=== PATIENT | male | born 1960 | race Caucasian/White ===

== ENCOUNTER → 2018-04-18 | Outpatient (CLI) | payer BC ==
--- NOTE | 2018-04-18 18:11 | XR ---
EXAMINATION TYPE: XR lumbosacral spine min 4V DATE OF EXAM: 04/18/2018 COMPARISON: NONE HISTORY: Back pain TECHNIQUE: 5 views FINDINGS: Lumbar vertebra have normal alignment. Posterior elements are intact. Sacroiliac joints [place] ear normal. Disc spaces are fairly normal. IMPRESSION: Negative lumbar spine exam.
--- NOTE | 2018-04-18 18:13 | XR ---
EXAMINATION TYPE: XR Hip Complete RT DATE OF EXAM: 04/18/2018 COMPARISON: NONE HISTORY: Hip pain TECHNIQUE: 2 views FINDINGS: I see no fracture nor dislocation. Hip joint space is fairly well-maintained. Sacroiliac albertina int appears normal. There is no sign of hip dysplasia. IMPRESSION: Negative right hip exam
== END | disposition home or self-care (01) ==
LOC: RADXRMAIN 16:38
PROVIDERS: ATTEND Internal Medicine
DX: M25.551 Pain in right hip (principal); M54.5 Low back pain
CPT/HCPCS: 72110; 73502

== ENCOUNTER 2020-02-21 06:21 | Emergency (ER) | payer BC, OTHER ==
[2020-02-21 06:30] VITALS: BP 151/89; PULSE 69; RESP 18; TEMP 97.5
--- NOTE | 2020-02-21 06:44 | ED ---
Upper Extremity HPI - General Chief Complaint: Extremity Injury, Upper Stated Complaint: [facility] hand injury Time Seen by Provider: 02/21/20 06:32 Source: patient, RN notes reviewed, old records reviewed Mode of arrival: EMS Limitations: no limitations - History of Present Illness Initial Comments: Patient 39-year-old male who presents emergency department today with a right hand third and fourth digit pain after he was using a drill and felt a snap between his proximal third digit and fourth digit. He denies any lacerations. Reports he does have range of motion of the fingers. He reports he's noticed some swelling. Patient states that he is right-handed. He denies any other complaints. - Related Data Home Medications Medication Instructions Recorded Confirmed Ibuprofen [Motrin] 200 - 400 mg PO Q6HR PRN 06/01/16 06/01/16 Multivitamins, Thera [Multivitamin] 1 tab PO DAILY 06/01/16 06/01/16 Super T Testosterone Supplement 3 cap PO DAILY 06/01/16 06/01/16 Previous Rx's Medication Instructions Recorded Ibuprofen [Motrin] 600 mg PO Q8HR PRN #20 tab 02/21/20 Allergies Allergy/AdvReac Type Severity Reaction Status Date / Time No Known Allergies Allergy Verified 02/21/20 06:31 Review of Systems ROS Statement: Those systems with pertinent positive or pertinent negative responses have been documented in the HPI. ROS Other: All systems not noted in ROS Statement are negative. Past Medical History Past Medical History: Asthma, Hypertension, Sleep Apnea/CPAP/BIPAP Additional Past Medical History / Comment(s): NO CPAP, hx migraines, arthritis, tinnitis History of Any Multi-Drug Resistant Organisms: None Reported Past Surgical History: Hernia Repair, Tonsillectomy Additional Past Surgical History / Comment(s): BENIGN BX NECK Past Anesthesia/Blood Transfusion Reactions: No Reported Reaction Past Psychological History: No Psychological Hx Reported Smoking Status: Current every day smoker Past Alcohol Use History: None Reported Past Drug Use History: Marijuana - Past Family History Mother Family Medical History: Deep Vein Thrombosis (DVT) General Exam Limitations: no limitations General appearance: alert, in no apparent distress Head exam: Present: atraumatic, normocephalic, normal inspection Eye exam: Present: normal appearance, PERRL, EOMI. Absent: scleral icterus, conjunctival injection, periorbital swelling ENT exam: Present: normal exam, mucous membranes moist Neck exam: Present: normal inspection. Absent: tenderness, meningismus, lymphadenopathy Respiratory exam: Present: normal lung sounds bilaterally. Absent: respiratory distress, wheezes, rales, rhonchi, stridor Cardiovascular Exam: Present: regular rate, normal rhythm, normal heart sounds. Absent: systolic murmur, diastolic murmur, rubs, gallop, clicks GI/Abdominal exam: Present: soft, normal bowel sounds. Absent: distended, tenderness, guarding, rebound, rigid Extremities exam: Present: normal inspection, full ROM, normal capillary refill. Absent: tenderness, pedal edema, joint swelling, calf tenderness Right Forearm Wrist exam: Present: normal inspection, full ROM Hand Wrist exam: Present: normal inspection, full ROM, tenderness (over distal 3rd and 4th metacarpal and PIP. Minimal swelling. subungal hematoma that is old under 5th digit. ) Neuro motor exam: Present: wrist extension intact, thumb opposition intact, thumb IP flexion intact, thumb adduction intact, fingers 2-5 abduction intact Neurosensory exam: Present: radial nerve intact, ulnar nerve intact, median ner ve intact Vascular: Present: normal capillary refill Back exam: Present: normal inspection Neurological exam: Present: alert, oriented X3, CN II-XII intact Psychiatric exam: Present: normal affect, normal mood Skin exam: Present: warm, dry, intact, normal color. Absent: rash Course Vital Signs 02/21/20 06:24 Temperature 97.5 F L Pulse Rate 69 Respiratory 18 Rate Blood Pressure 151/89 O2 Sat by Pulse 96 Oximetry Procedures - Orthopedic Splinting/Casting Injury #1 Side: right Upper Extremity Injury Location: hand, finger Upper Extremity Immobilizer: volar splint Medical Decision Making - Medical Decision Making Patient is a 59-year-old male presents range from stay for evaluation for right hand pain. Patient reports that he was using a drill and felt a snap in his hand. He reports pain with range of motion but is able to flex and extend his fingers normally. Has mainly tenderness over the third and fourth metacarpal. X-ray shows evidence of nondisplaced hairline fracture of the metacarpal. Patient was placed in a volar splint. I discussed Patient to follow-up with orthopedic. [facility] inflammatory pain medicine as prescribed. - Radiology Data Radiology results: report reviewed Nondisplaced hairline fracture of the distal dye metaphyseal region of the third metacarpal. Disposition Clinical Impression: Hand fracture Disposition: HOME SELF-CARE Condition: Good Instructions (If sedation given, give patient instructions): Hand Fracture (ED) Additional Instructions: Patient advised to remain in the splint. Follow-up with orthopedic. Return to the ED if any alarming signs or symptoms occur. Prescriptions: Ibuprofen [Motrin] 600 mg PO Q8HR PRN #20 tab PRN Reason: Pain Is patient prescribed a controlled substance at d/c from ED?: No Referrals: Sander Trimble MD [Primary Care Provider] - 1-2 days Bryce Ibarra DO [Doctor of Osteopathic Medicine] - 1-2 days Time of Disposition: 07:39
--- NOTE | 2020-02-21 07:27 | XR ---
EXAMINATION TYPE: XR hand complete RT DATE OF EXAM: 02/21/2020 CLINICAL HISTORY: pain TECHNIQUE: Frontal, lateral and oblique images of the right hand are obtained. COMPARISON: None. FINDINGS: Nondisplaced hairline fracture distal diametaphyseal region third metacarpal. The joint spa alexis appear within normal limits. The overlying soft tissue appears unremarkable. Bony sclerosis midd le phalanx right third digit compatible with bone island. IMPRESSION: Nondisplaced hairline fracture distal diametaphyseal region third metacarpal. ICD 10 closed FRACTURE, INITIAL EVALUATION
[2020-02-21] MEDS ORDERED: ACET/COD 300 MG/30 MG STARTER PACK 6 TAB BTL PO STA (07:39)
== END 2020-02-21 08:06 | disposition home or self-care (01) ==
LOC: EC 06:21
DX: S62.302A Unspecified fracture of third metacarpal bone, right hand, initial encounter for closed fracture (principal); I10 Essential (primary) hypertension; G47.30 Sleep apnea, unspecified; F17.200 Nicotine dependence, unspecified, uncomplicated; Z99.89 Dependence on other enabling machines and devices; X50.9XXA Other and unspecified overexertion or strenuous movements or postures, initial encounter; Y92.69 Other specified industrial and construction area as the place of occurrence of the external cause; Y99.0 Civilian activity done for income or pay
CPT/HCPCS: 29125; 99284

== ENCOUNTER → 2020-07-24 | Outpatient (CLI) | payer BC | END | disposition home or self-care (01) | LOC: LABWHC1 09:15 | PROVIDERS: ATTEND Emergency Medicine | DX: Z20.828 Contact with and (suspected) exposure to other viral communicable diseases (principal) | CPT/HCPCS: U0003; C9803 ==

== ENCOUNTER 2020-10-11 16:17 | Emergency (ER) | payer BC ==
[2020-10-11 16:29] VITALS: BP 158/94; PULSE 76; RESP 20; TEMP 98.3
[2020-10-11] MEDS ORDERED: KETOROLAC 15 MG/ML 1 ML VIAL IM STA (17:00)
--- NOTE | 2020-10-11 17:01 | ED ---
General Adult HPI - General Chief complaint: Extremity Problem,Nontraumatic Stated complaint: R Shoulder Pain Time Seen by Provider: 10/11/20 16:40 Source: patient Mode of arrival: ambulatory Limitations: no limitations - History of Present Illness Initial comments: Dictation was produced using [employer] dictation software. please excuse any grammatical, word or spelling errors. This patient was cared for during a federal and state declared state of emergency secondary to Covid 19 Chief Complaint: 59-year-old male presents with right shoulder pain History of Present Illness: 59-year-old male he is past medical history of chronic right shoulder pain. Patient states that 6 years ago he had an MRI that showed rotator cuff tear. Today began experiencing severe right shoulder pain. Denies any trauma to the shoulder. Patient states painful and feels swollen. Denies a fever, chills or night sweats. Pain reports his pain is severe with no radiation. 6 or 7 years ago he was recommended to have surgery for his shoulder however never got it due to logistical issues. The ROS documented in this emergency department record has been reviewed and confirmed by me. Those systems with pertinent positive or negative responses have been documented in the HPI. All other systems are other negative and/or noncontributory. PHYSICAL EXAM: General Impression: Alert and oriented x3, not in acute distress HEENT: Normocephalic atraumatic, extra-ocular movements intact, pupils equal and reactive to light bilaterally, mucous membranes moist. Cardiovascular: Heart regular rate and rhythm Chest: Able to complete full sentences, no retractions, no tachypnea Abdomen: abdomen soft, non-tender, non-distended, no organomegaly Musculoskeletal: Pulses present and equal in all extremities, no peripheral edema Motor: no focal deficits noted Right shoulder: Decreased range of motion with passive and active range of motion. Passive range of motion limited to approximately 45 of abduction. Movements are full to patient. Neurological: CN II-XII grossly intact, no focal motor or sensory deficits noted Skin: Intact with no visualized rashes Psych: Normal affect and mood ED course: 59-year-old male presents with atraumatic right shoulder pain. Vital signs upon arrival are within acceptable limits Shoulder x-ray shows mild degenerative narrowing of the shoulder joints patient with calcific tendinitis. Patient placed in arm sling for comfort. Patient given pain medications at his pharmacy. He is given referral to orthopedic surgery for outpatient management of symptoms. - Related Data Home Medications Medication Instructions Recorded Confirmed Ibuprofen [Motrin] 200 - 400 mg PO Q6HR PRN 06/01/16 06/01/16 Multivitamins, Thera [Multivitamin] 1 tab PO DAILY 06/01/16 06/01/16 Super T Testosterone Supplement 3 cap PO DAILY 06/01/16 06/01/16 Previous Rx's Medication Instructions Recorded Acetaminophen with Codeine 1 tab PO Q6H PRN 3 Days #12 tab 02/21/20 [Tylenol w/codeine #3] Ibuprofen [Motrin] 600 mg PO Q8HR PRN #20 tab 02/21/20 HYDROcodone/APAP 5-325MG [[place] 1 tab PO Q6HR PRN 3 Days #12 tab 10/11/20 5-325] Allergies Allergy/AdvReac Type Severity Reaction Status Date / Time No Known Allergies Allergy Verified 10/11/20 16:29 Review of Systems ROS Statement: Those systems with pertinent positive or pertinent negative responses have been documented in the HPI. ROS Other: All systems not noted in ROS Statement are negative. Past Medical History Past Medical History: Asthma, Hypertension, Sleep Apnea/CPAP/BIPAP Additional Past Medical History / Comment(s): NO CPAP, hx migraines, arthritis, tinnitis History of Any Multi-Drug Resistant Organisms: None Reported Past Surgical History: Hernia Repair, Tonsillectomy Additional Past Surgical History / Comment(s): BENIGN BX NECK Past Anesthesia/Blood Transfusion Reactions: No Reported Reaction Past Psychological History: No Psychological Hx Reported Smoking Status: Current every day smoker Past Alcohol Use History: None Reported Past Drug Use History: Marijuana - Past Family History Mother Family Medical History: Deep Vein Thrombosis (DVT) General Exam Limitations: no limitations Course Vital Signs 10/11/20 16:27 Temperature 98.3 F Pulse Rate 76 Respiratory 20 Rate Blood Pressure 158/94 O2 Sat by Pulse 96 Oximetry Disposition Clinical Impression: Arthritis of shoulder Disposition: HOME SELF-CARE Condition: Good Instructions (If sedation given, give patient instructions): Calcific Tendinitis (ED), Shoulder Pain (ED) Prescriptions: HYDROcodone/APAP 5-325MG [[place] 5-325] 1 tab PO Q6HR PRN 3 Days #12 tab PRN Reason: Severe Pain Is patient prescribed a controlled substance at d/c from ED?: Yes If prescribed controlled substance>3 days was MAPS reviewed?: Prescribed <3 Days Referrals: Patrick Ibarra DO [Doctor of Osteopathic Medicine] - 1-2 days Time of Disposition: 17:16
--- NOTE | 2020-10-11 17:09 | XR ---
EXAMINATION TYPE: XR shoulder complete RT DATE OF EXAM: 10/11/2020 COMPARISON: NONE HISTORY: Shoulder pain TECHNIQUE: 3 views FINDINGS: There is 1 cm calcification at the greater tuberosity of the humerus. I see no fracture nor dislocation. There is slight narrowing of the glenohumeral joint space. AC joint is intact. IMPRESSION: Mild degenerative narrowing of the shoulder joint space. Calcific tendinitis. No fracture seen.
== END 2020-10-11 17:07 | disposition home or self-care (01) ==
LOC: EC 16:17
DX: M19.011 Primary osteoarthritis, right shoulder (principal); I10 Essential (primary) hypertension; J45.909 Unspecified asthma, uncomplicated; G47.30 Sleep apnea, unspecified; M77.8 Other enthesopathies, not elsewhere classified; F17.200 Nicotine dependence, unspecified, uncomplicated; Z99.89 Dependence on other enabling machines and devices
CPT/HCPCS: 73030; 99283; 96372; J1885

== ENCOUNTER 2024-01-22 12:04 | Emergency (ER) | payer BC ==
--- NOTE | 2024-01-22 12:12 | ED ---
General Adult HPI - General Stated complaint: Respiratory issues Time Seen by Provider: 01/22/24 12:04 Source: patient, RN notes reviewed, old records reviewed - History of Present Illness Initial comments: This is a 63-year-old male who is brought in because there was initial me some concern for altered mental status. Patient was driving a little erratically and he pulled over at a gas station and police called EMS. When EMS arrived he was oxygenating at 63% pulse ox. Patient states he is a smoker and worked all night so he is extremely tired. Patient was put on oxygen and given a breathing treatment he stated he feels considerably better after that. Patient denies any chest pain or palpitation. Patient Nuys any fever chills but states he has quite a bit of a cough. Patient also denies any abdominal pain denies any nausea vomit diarrhea. - Related Data Home Medications Medication Instructions Recorded Confirmed Ibuprofen [Motrin] 200 - 400 mg PO Q6HR PRN 06/01/16 06/01/16 Multivitamins, Thera [Multivitamin] 1 tab PO DAILY 06/01/16 06/01/16 Super T Testosterone Supplement 3 cap PO DAILY 06/01/16 06/01/16 Previous Rx's Medication Instructions Recorded Acetaminophen with Codeine 1 tab PO Q6H PRN 3 Days #12 tab 02/21/20 [Tylenol w/codeine #3] Ibuprofen [Motrin] 600 mg PO Q8HR PRN #20 tab 02/21/20 HYDROcodone/APAP 5-325MG [Ulysses 1 tab PO Q6HR PRN 3 Days #12 tab 10/11/20 5-325] Allergies Allergy/AdvReac Type Severity Reaction Status Date / Time No Known Allergies Allergy Verified 10/11/20 16:29 Review of Systems ROS Statement: Those systems with pertinent positive or pertinent negative responses have been documented in the HPI. ROS Other: All systems not noted in ROS Statement are negative. Past Medical History Past Medical History: Asthma, Hypertension, Sleep Apnea/CPAP/BIPAP Additional Past Medical History / Comment(s): NO CPAP, hx migraines, arthritis, tinnitis History of Any Multi-Drug Resistant Organisms: None Reported Past Surgical History: Hernia Repair, Tonsillectomy Additional Past Surgical History / Comment(s): BENIGN BX NECK Past Anesthesia/Blood Transfusion Reactions: No Reported Reaction Past Psychological History: No Psychological Hx Reported Smoking Status: Current every day smoker Past Alcohol Use History: None Reported Past Drug Use History: Marijuana - Past Family History Mother Family Medical History: Deep Vein Thrombosis (DVT) General Exam - General Exam Comments Initial Comments: GENERAL: Patient is well-developed and well-nourished. Patient is nontoxic and well- hydrated and is in mild distress. ENT: Neck is soft and supple. No significant lymphadenopathy is noted. Oropharynx is clear. Moist mucous membranes. Neck has full range of motion without eliciting any pain. EYES: The sclera were anicteric and conjunctiva were pink and moist. Extraocular movements were intact and pupils were equal round and reactive to light. Eyelids were unremarkable. PULMONARY: Patient has diminished breath sounds expiratory wheezing throughout and some crackles in the left base CARDIOVASCULAR: There is a regular rate and rhythm without any murmurs gallops or rubs. ABDOMEN: Soft and nontender with normal bowel sounds. No palpable organomegaly was noted. There is no palpable pulsatile mass. SKIN: Skin is clear with no lesions or rashes and otherwise unremarkable. NEUROLOGIC: Patient is alert and oriented x3. Cranial nerves II through XII are grossly intact. Motor and sensory are also intact. Normal speech, volume and content. Symmetrical smile. MUSCULOSKELETAL: Normal extremities with adequate strength and full range of motion. No lower extremity swelling or edema. No calf tenderness. LYMPHATICS: No significant lymphadenopathy is noted PSYCHIATRIC: Normal psychiatric evaluation. Course Vital Signs 01/22/24 01/22/24 01/22/24 12:06 12:17 12:30 Temperature 100.0 F H Pulse Rate 95 94 Respiratory 22 Rate Blood Pressure 149/109 O2 Sat by Pulse 72 L 90 L Oximetry Fraction of Inspired Oxygen (FIO2) 01/22/24 01/22/24 01/22/24 12:36 12:45 12:54 Temperature Pulse Rate 93 92 Respiratory 20 22 Rate Blood Pressure 148/99 O2 Sat by Pulse 93 L Oximetry Fraction of Inspired Oxygen (FIO2) 01/22/24 01/22/24 01/22/24 12:55 12:56 12:57 Temperature Pulse Rate Respiratory 16 Rate Blood Pressure O2 Sat by Pulse 96 Oximetry Fraction of 40 40 Inspired Oxygen (FIO2) 01/22/24 01/22/24 01/22/24 13:00 14:00 14:30 Temperature Pulse Rate 87 90 Respiratory 14 14 Rate Blood Pressure 158/110 O2 Sat by Pulse 93 L 91 L Oximetry Fraction of 40 Inspired Oxygen (FIO2) 01/22/24 01/22/24 01/22/24 15:00 15:48 15:49 Temperature Pulse Rate 91 Respiratory 14 Rate Blood Pressure 139/78 O2 Sat by Pulse 91 L Oximetry Fraction of 100 100 Inspired Oxygen (FIO2) Procedures - Intubation Sedative: Versed Paralytic: Succinylcholine Laryngoscope: Rodriguez Size: 3 ET Tube Size: 7.5 ET Tube Uncuffed: No Tube Secured Location: teeth Tube Placement Confirmation: visualized tube passing through cords, equal breath sounds bilaterally, no breath sounds over epigastrium, confirmation by capnometry Patient Tolerated Procedure: well Intubation Complications: none Medical Decision Making - Medical Decision Making EKG is interpreted by myself. EKG shows sinus rhythm at 94 bpm [place] interval is 129 QRS is 84 QT interval 347 QTc is 399. Patient's EKG shows no significant ST segment elevation Was pt. sent in by a medical professional or institution (, PA, BRAND [employer]AD, urgent care, hospital, or [place] health care facility...) When possible be specific @ -No Did you speak to anyone other than the patient for history (EMS, parent, family, police, friend...)? What history was obtained from this source @ -No Did you review nursing and triage notes (agree or disagree)? Why? @ -I reviewed and agree with nursing and triage notes Were old charts reviewed (outside hosp., previous admission, EMS record, old EKG, old radiological studies, urgent care reports/EKG's, [place] health [facility] facility records)? Report findings @ -No old charts were reviewed Differential Diagnosis (chest pain, altered mental status, abdominal pain women, abdominal pain men, vaginal bleeding, weakness, fever, dyspnea, syncope, headache, dizziness, GI bleed, back pain, seizure, CVA, palpatations, mental health, musculoskeletal)? @ -Differential Dyspnea: Coronary syndrome, arrhythmia, tamponade, asthma, COPD, pulmonary embolism, pneumonia, pneumothorax, pulmonary effusion, anaphylaxis, diabetic ketoacidosis, flailed chest, pulmonary contusion, diaphragmatic rupture, anemia, neuromuscular, this is not meant to be an all-inclusive list. EKG interpreted by me (3pts min.). @ -As above X-rays interpreted by me (1pt min.). @ -Chest x-ray shows a left lower lobe infiltrate CT interpreted by me (1pt min.). @ -None done U/S interpreted by me (1pt. min.). @ -None done What testing was considered but not performed or refused? (CT, X-rays, U/S, labs)? Why? @ -None What meds were considered but not given or refused? Why? @ -None Did you discuss the management of the patient with other professionals (professionals i.e. , PA, BR[employer]AD, lab, RT, psych nurse, social insurance administrator, assistant business manager, teacher, commanding officer garage, briefcase sewer)? Give summary @ -I spoke with [facility] they agreed admit the patient admit the patient wrote admitting orders Was smoking cessation discussed for >3mins.? @ -No Was critical care preformed (if so, how long)? @ -40 minutes Were there social determinants of health that impacted care today? How? (Homelessness, low income, unemployed, alcoholism, drug addiction, transportation, low edu. Level, literacy, decrease access to med. care, assisted, rehab)? @ -No Was there de-escalation of care discussed even if they declined (Discuss DNR or withdrawal of care, Hospice)? DNR status @ -No What co-morbidities impacted this encounter? (DM, HTN, Smoking, COPD, CAD, Cancer, CVA, ARF, Chemo, Hep., AIDS, mental health diagnosis, sleep apnea, morbid obesity)? @ -COPD, smoking Was patient admitted / discharged? Hospital course, mention meds given and route, prescriptions, significant lab abnormalities, going to OR and other pertinent info. @ -Patient came in slightly altered however he seemed to come around and was alert and oriented x 4 shortly after arrival. I put the patient on BiPAP he did not tolerate it well I gave him half an Ativan but he continued to take the mask off I went back and reevaluated him he was confused I reversed the Ativan and then I increased the BiPAP to 15/5 he did not come around he became even more obtunded and at this point I am intubated the patient. Patient repeat chest x- ray which I interpreted showed good placement of the ET tube. Patient was started on antibiotics almost immediately upon arrival. Patient got steroids and another breathing treatment while he was here. Patient's troponin was elevated at 1.1 heparin will be ordered once his CT scan is cleared. I spoke with Dr. Wong he agreed to admit the patient admit the patient wrote admitting orders [place] will be the admitting physician's Undiagnosed new problem with uncertain prognosis? @ -No Drug Therapy requiring intensive monitoring for toxicity (Heparin, Nitro, Insulin, Cardizem)? @ -No Were any procedures done? @ -No Diagnosis/symptom? @ -COPD exacerbation Acute, or Chronic, or Acute on Chronic? @ -Acute Uncomplicated (without systemic symptoms) or Complicated (systemic symptoms)? @ -Comp Side effects of treatment? @ -No Exacerbation, Progression, or Severe Exacerbation? @ -Severe exacerbation Poses a threat to life or bodily function? How? (Chest pain, USA, NH, pneumonia, PE, COPD, DKA, ARF, appy, cholecystitis, CVA, Diverticulitis, Homicidal, Suic idal, threat to staff... and all critical care pts) @ -Yes this can lead to hypoxia and endorgan dysfunction Diagnosis/symptom? @ -Pneumonia Acute, or Chronic, or Acute on Chronic? @ -Acute Uncomplicated (without systemic symptoms) or Complicated (systemic symptoms)? @ -Complicated Side effects of treatment? @ -None Exacerbation, Progression, or Severe Exacerbation] @ -No Poses a threat to life or bodily function? @ -Yes this can lead to hypoxia and endorgan dysfunction Diagnosis/symptom? @ -NSTEMI Acute, or Chronic, or Acute on Chronic? @ -Acute Uncomplicated (without systemic symptoms) or Complicated (systemic symptoms)? @ -Complicated Side effects of treatment? @ -None Exacerbation, Progression, or Severe Exacerbation] @ -No Poses a threat to life or bodily function? @ -Yes this can lead to an NH and poor perfusion. - Lab Data Result diagrams: 01/22/24 12:24 01/22/24 13:15 Lab Results 01/22/24 01/22/24 01/22/24 Range/Units 12:24 12:24 12:24 WBC 11.2 H (3.8-10.6) k/uL RBC 5.57 (4.30-5.90) m/uL Hgb 16.1 (13.0-17.5) gm/dL Hct 52.9 (39.0-53.0) % MCV 94.9 (80.0-100.0) fL MCH 28.8 (25.0-35.0) pg MCHC 30.4 L (31.0-37.0) g/dL RDW 14.4 (11.5-15.5) % Plt Count 329 (150-450) k/uL MPV 8.7 Neutrophils % 75 % Lymphocytes % 12 % Monocytes % 10 % Eosinophils % 1 % Basophils % 0 % Neutrophils # 8.4 H (1.3-7.7) k/uL Lymphocytes # 1.3 (1.0-4.8) k/uL Monocytes # 1.1 H (0-1.0) k/uL Eosinophils # 0.1 (0-0.7) k/uL Basophils # 0.0 (0-0.2) k/uL Hypochromasia Slight PT 14.0 H (10.0-12.5) sec INR 1.3 H (<1.2) APTT 25.1 (22.0-30.0) sec Sample Site ABG pH (7.35-7.45) ABG pCO2 (35-45) mmHg ABG pO2 (83-108) mmHg ABG HCO3 (21-25) mmol/L ABG Total CO2 (19-24) mmol/L ABG O2 Saturation (94-97) % ABG Base Excess mmol/L Rashawn Test FiO2 % Sodium (137-145) mmol/L Potassium (3.5-5.1) mmol/L Chloride (98-107) mmol/L Carbon Dioxide (22-30) mmol/L Anion Gap mmol/L BUN (9-20) mg/dL Creatinine (0.66-1.25) mg/dL Est GFR (CKD-EPI)AfAm (>60 ml/min/1.73 sqM) Est GFR (CKD-EPI)NonAf (>60 ml/min/1.73 sqM) Glucose (74-99) mg/dL Lactic Ac Sepsis Rflx Plasma Lactic Acid Jacob 2.3 H* (0.7-2.0) mmol/L Calcium (8.4-10.2) mg/dL Magnesium (1.6-2.3) mg/dL Total Bilirubin (0.2-1.3) mg/dL AST (17-59) U/L ALT (4-49) U/L Alkaline Phosphatase (38-126) U/L Troponin I (0.000-0.034) ng/mL NT-Pro-B Natriuret Pep pg/mL Total Protein (6.3-8.2) g/dL Albumin (3.5-5.0) g/dL Influenza Type A (PCR) (Not Detectd) Influenza Type B (PCR) (Not Detectd) RSV (PCR) (Not Detectd) SARS-CoV-2 (PCR) (Not Detectd) 01/22/24 01/22/24 01/22/24 Range/Units 12:25 12:29 13:15 WBC (3.8-10.6) k/uL RBC (4.30-5.90) m/uL Hgb (13.0-17.5) gm/dL Hct (39.0-53.0) % MCV (80.0-100.0) fL MCH (25.0-35.0) pg MCHC (31.0-37.0) g/dL RDW (11.5-15.5) % Plt Count (150-450) k/uL MPV Neutrophils % % Lymphocytes % % Monocytes % % Eosinophils % % Basophils % % Neutrophils # (1.3-7.7) k/uL Lymphocytes # (1.0-4.8) k/uL Monocytes # (0-1.0) k/uL Eosinophils # (0-0.7) k/uL Basophils # (0-0.2) k/uL Hypochromasia PT (10.0-12.5) sec INR (<1.2) APTT (22.0-30.0) sec Sample Site Right Radial ABG pH 7.34 L (7.35-7.45) ABG pCO2 67 H (35-45) mmHg ABG pO2 88 (83-108) mmHg ABG HCO3 36 H (21-25) mmol/L ABG Total CO2 38 H (19-24) mmol/L ABG O2 Saturation 96.0 (94-97) % ABG Base Excess 10.1 mmol/L Rashawn Test Yes FiO2 100 % Sodium 136 L (137-145) mmol/L Potassium 5.4 H (3.5-5.1) mmol/L Chloride 95 L (98-107) mmol/L Carbon Dioxide 33 H (22-30) mmol/L Anion Gap 8 mmol/L BUN 46 H (9-20) mg/dL Creatinine 1.11 (0.66-1.25) mg/dL Est GFR (CKD-EPI)AfAm 82 (>60 ml/min/1.73 sqM) Est GFR (CKD-EPI)NonAf 71 (>60 ml/min/1.73 sqM) Glucose 107 H (74-99) mg/dL Lactic Ac Sepsis Rflx Plasma Lactic Acid Jacob (0.7-2.0) mmol/L Calcium 8.2 L (8.4-10.2) mg/dL Magnesium 2.3 (1.6-2.3) mg/dL Total Bilirubin 1.2 (0.2-1.3) mg/dL AST 81 H (17-59) U/L ALT 177 H (4-49) U/L Alkaline Phosphatase 77 (38-126) U/L Troponin I (0.000-0.034) ng/mL NT-Pro-B Natriuret Pep 26861 pg/mL Total Protein 5.9 L (6.3-8.2) g/dL Albumin 3.6 (3.5-5.0) g/dL Influenza Type A (PCR) Not Detected (Not Detectd) Influenza Type B (PCR) Not Detected (Not Detectd) RSV (PCR) Not Detected (Not Detectd) SARS-CoV-2 (PCR) Not Detected (Not Detectd) 01/22/24 01/22/24 01/22/24 Range/Units 13:15 13:18 14:40 WBC (3.8-10.6) k/uL RBC (4.30-5.90) m/uL Hgb (13.0-17.5) gm/dL Hct (39.0-53.0) % MCV (80.0-100.0) fL MCH (25.0-35.0) pg MCHC (31.0-37.0) g/dL RDW (11.5-15.5) % Plt Count (150-450) k/uL MPV Neutrophils % % Lymphocytes % % Monocytes % % Eosinophils % % Basophils % % Neutrophils # (1.3-7.7) k/uL Lymphocytes # (1.0-4.8) k/uL Monocytes # (0-1.0) k/uL Eosinophils # (0-0.7) k/uL Basophils # (0-0.2) k/uL Hypochromasia PT (10.0-12.5) sec INR (<1.2) APTT (22.0-30.0) sec Sample Site Right Brachial ABG pH 7.25 L (7.35-7.45) ABG pCO2 84 H* (35-45) mmHg ABG pO2 69 L (83-108) mmHg ABG HCO3 36 H (21-25) mmol/L ABG Total CO2 39 H (19-24) mmol/L ABG O2 Saturation 89.3 L (94-97) % ABG Base Excess 9.0 mmol/L Rashawn Test Yes FiO2 50 % Sodium (137-145) mmol/L Potassium (3.5-5.1) mmol/L Chloride (98-107) mmol/L Carbon Dioxide (22-30) mmol/L Anion Gap mmol/L BUN (9-20) mg/dL Creatinine (0.66-1.25) mg/dL Est GFR (CKD-EPI)AfAm (>60 ml/min/1.73 sqM) Est GFR (CKD-EPI)NonAf (>60 ml/min/1.73 sqM) Glucose (74-99) mg/dL Lactic Ac Sepsis Rflx Y Plasma Lactic Acid Jacob (0.7-2.0) mmol/L Calcium (8.4-10.2) mg/dL Magnesium (1.6-2.3) mg/dL Total Bilirubin (0.2-1.3) mg/dL AST (17-59) U/L ALT (4-49) U/L Alkaline Phosphatase (38-126) U/L Troponin I 1.120 H* (0.000-0.034) ng/mL NT-Pro-B Natriuret Pep pg/mL Total Protein (6.3-8.2) g/dL Albumin (3.5-5.0) g/dL Influenza Type A (PCR) (Not Detectd) Influenza Type B (PCR) (Not Detectd) RSV (PCR) (Not Detectd) SARS-CoV-2 (PCR) (Not Detectd) Critical Care Time Critical Care Time: Yes Total Critical Care Time: 40 Disposition Clinical Impression: Acute exacerbation of chronic obstructive pulmonary disease (COPD), Pneumonia, NSTEMI (non-ST elevated myocardial infarction) Disposition: ADMITTED IP TO THIS HOSP Referrals: Sander Trimble MD [Primary Care Provider] - 1-2 days Time of Disposition: 16:04
[2024-01-22 12:16] VITALS: TEMP 100
[2024-01-22] MEDS: ALBUTEROL NEBULIZED 2.5 MG/3 ML INHALATION STA (12:22)
[2024-01-22] MEDS: IPRATROPIUM 0.5 MG/2.5 ML NEBU INHALATION STA (12:22)
[2024-01-22 12:35] LABS: ABG Base Excess 10.1 mmol/L; ABG HCO3 36 mmol/L (21-25); ABG PCO2 67 mmHg (35-45); ABG PH 7.34 (7.35-7.45); ABG PO2 88 mmHg (83-108); ABG TCO2 38 mmol/L (19-24); Allen Test Performed? Yes
[2024-01-22] MEDS: IBUPROFEN 600 MG TAB PO STA (12:49)
[2024-01-22] MEDS: ACETAMINOPHEN TAB 500 MG TAB PO STA (12:50)
[2024-01-22] MEDS: methylPREDNISolone SOD SUCCI 125 MG/2 ML VIAL IV STA (12:50)
[2024-01-22 12:51] LABS: Basophils % (A) 0 %; Eosinophils # (A) 0.1 k/uL (0-0.7); Eosinophils % (A) 1 %; HCT 52.9 % (39.0-53.0); HGB 16.1 gm/dL (13.0-17.5); Hypochromasia Slight; Lymphocytes # (A) 1.3 k/uL (1.0-4.8); Lymphocytes % (A) 12 %; MCH 28.8 pg (25.0-35.0); MCHC 30.4 g/dL (31.0-37.0); MCV 94.9 fL (80.0-100.0); Mean Platelet Volume 8.7; Monocytes # (A) 1.1 k/uL (0-1.0); Monocytes % (A) 10 %; Neutrophils # (A) 8.4 k/uL (1.3-7.7); Neutrophils % (A) 75 %; Platelet Count 329 k/uL (150-450); RBC 5.57 m/uL (4.30-5.90); RDW 14.4 % (11.5-15.5); WBC 11.2 k/uL (3.8-10.6)
[2024-01-22] MEDS: cefTRIAXone IN SWFI 1,000 MG/10 ML SYRINGE IVP STA ×2 (12:54→12:55)
[2024-01-22] MEDS: LORazepam 2 MG/ML INJ IV STA (13:33)
--- NOTE | 2024-01-22 13:50 | XR ---
EXAMINATION TYPE: XR chest 1V portable DATE OF EXAM: 01/22/2024 1:13 PM CLINICAL INDICATION:Male, 63 years old with history of difficulty breathing; [facility] COMPARISON: 11/29/2015 TECHNIQUE: XR chest 1V portable Frontal view of the chest. FINDINGS: Lungs/Pleura: Blunting of the costophrenic angles is present. There is increased airspace opacities i n the left lower lung. Prominent interstitial lung markings are seen scattered throughout the lungs w ith flattening of the diaphragm and increased lucency of the lung apices. No evidence of pneumothorax . Pulmonary vascularity: Unremarkable. Heart/mediastinum: Cardiomediastinal silhouette is unremarkable. Musculoskeletal: No acute osseous pathology. Other findings: None IMPRESSION: 1. Left lower lung airspace opacities bilateral pleural effusions. Correlate for pneumonia correlate serum BNP to exclude component of pulmonary vascular congestion. 2. COPD changes.
[2024-01-22 14:11] LABS: ALT 177 U/L (4-49); AST 81 U/L (17-59); African American GFR (CKD) 82 (>60 ml/min/1.73 sqM); Albumin 3.6 g/dL (3.5-5.0); Alkaline Phosphatase 77 U/L (38-126); Anion Gap 8 mmol/L; Blood Urea Nitrogen 46 mg/dL (9-20); Calcium 8.2 mg/dL (8.4-10.2); Carbon Dioxide 33 mmol/L (22-30); Chloride 95 mmol/L (98-107); Glucose 107 mg/dL (74-99); Magnesium 2.3 mg/dL (1.6-2.3); Non-African American GFR(CKD) 71 (>60 ml/min/1.73 sqM); Potassium 5.4 mmol/L (3.5-5.1); Sodium 136 mmol/L (137-145); Total Bilirubin 1.2 mg/dL (0.2-1.3); Total Protein 5.9 g/dL (6.3-8.2)
[2024-01-22 14:14] LABS: INR 1.3 (<1.2); Partial Thromboplastin Time 25.1 sec (22.0-30.0)
[2024-01-22 14:18] LABS: NT-Pro-B-Type Natriuretic Pept 10900 pg/mL
[2024-01-22 14:49] LABS: ABG HCO3 36 mmol/L (21-25); ABG Oxygen Saturation 89.3 % (94-97); ABG PH 7.25 (7.35-7.45); ABG PO2 69 mmHg (83-108); ABG TCO2 39 mmol/L (19-24); Allen Test Performed? Yes
[2024-01-22 14:52] LABS: ABG PCO2 84 mmHg (35-45)
[2024-01-22] MEDS: FLUMAZENIL 0.1 MG/ML 5 ML VIAL IVP STA (15:02)
[2024-01-22] MEDS: MIDAZOLAM 1 MG/ML 5 ML VIAL IV STA ×4 (15:33→22:36)
[2024-01-22] MEDS: SUCCINYLCHOLINE CHLORIDE 200 MG/10 ML VIAL IV STA (15:34)
[2024-01-22] MEDS ORDERED: PNEUMONIA PROTOCOL UTILIZED 1 EACH MISC PO PRN (16:05)
--- NOTE | 2024-01-22 16:42 | CT ---
EXAMINATION TYPE: CT brain wo con CT DLP: 1201.4 mGycm, Automated exposure control for dose reduction was used. DATE OF EXAM: 01/22/2024 4:20 PM COMPARISON: None. CLINICAL INDICATION:Male, 63 years old with history of Altered mental status, AMS, rt eye blurred vis ion and low o2, pt intubated TECHNIQUE: Brain: Axial CT images of the brain were obtained with coronal and sagittal reformats created and rev iewed. Contrast used: None. Oral contrast used: None. FINDINGS: Extra-axial spaces: No abnormal extra-axial fluid collections. Incisura appears normal and the basila r cisterns are patent. Ventricular system: Ventricles appear mildly dilated in proportion to the degree of cerebral atrophy. Cerebral parenchyma: There is mild background atrophy. Patchy areas of relative hypoattenuation thro ughout the cerebral white matter consistent with chronic microvascular ischemic change. Ill-defined hypoattenuation with loss of alan/white matter distinction in the left posterior parietal and occipital lobes extending to the cortical surface, consistent with acute ischemic infarct. No he morrhage is seen at this time. There is mild associated edema without significant mass effect or midl ine shift. Cerebellum: No acute abnormality. Mass effect: No evidence of significant mass effect or midline shift. Intracranial vasculature: Atherosclerotic calcifications of the larger arteries near the skull base. Soft tissues: No acute or concerning abnormality. Visualized orbits: Orbital contents appear grossly intact. Calvarium/osseous structures: No acute calvarial fracture. Moderate nasal septal deviation towards th e right. Mild mucosal thickening left maxillary sinus. No significant sinus fluid. Mastoid air cells are clear. IMPRESSION: 1. Acute ischemic infarct left parieto-occipital lobes. 2. No evidence of intracranial hemorrhage. 3. No significant mass effect or midline shift. No herniation.
[2024-01-22 17:08] LABS: ABG Base Excess 7.1 mmol/L; ABG HCO3 33 mmol/L (21-25); ABG Oxygen Saturation 99.3 % (94-97); ABG PCO2 61 mmHg (35-45); ABG PH 7.34 (7.35-7.45); ABG PO2 305 mmHg (83-108); ABG TCO2 35 mmol/L (19-24); Allen Test Performed? Yes
[2024-01-22] MEDS: PIPERACILLIN-TAZOBACTAM 3.375 GM in SODIUM CHLORIDE 0.9% 100 ML IVPB STA (17:14)
[2024-01-22] MEDS: AZITHROMYCIN 500 MG in SODIUM CHLORIDE 0.9% 250 ML IVPB STA (17:32)
[2024-01-22 18:01] VITALS: RESP 16
[2024-01-22] MEDS: methylPREDNISolone SOD SUCCI 125 MG/2 ML VIAL IV SCH (18:09)
--- NOTE | 2024-01-22 19:17 | CT ---
EXAMINATION TYPE: CT angio head neck DATE OF EXAM: 01/22/2024 6:30 PM COMPARISON: Earlier same day CT head. CLINICAL INDICATION:Male, 63 years old with history of possible stroke, visual changes; PHH, AMS, rt eye blurred vision and low o2, pt intubated TECHNIQUE: Axially acquired helical CT angiogram of the head and neck was obtained with contrast. Axi al images are supplemented with 3D reconstructions which [facility] NASCET criteria used. Contrast used: 100ml mL of Isovue 370 with IV Contrast, Oral contrast used: None. CT DLP: 448.9 mGycm, Automated exposure control for dose reduction was used. FINDINGS: CTA Neck: A 3 vessel aortic arch is shown. Ascending aorta shows fusiform ectasia up to 3.6 cm. Atherosclerotic plaque is present in the aortic arch and at the origin of the brachiocephalic artery, with mild plaq ue in the left common and left subclavian arteries. No significant stenosis. Right carotid system: The common carotid is patent. At the bifurcation and proximal ICA there is mixe d soft and calcified plaque, resulting in no significant stenosis of the proximal ICA. ICA is then pa tent to the skull base. The ECA is patent. Left carotid system: The common carotid is patent. Scattered small calcific plaques in the mid to dis eben common carotid. There is a patent bifurcation. ECA is patent. Some calcific plaques in the proxim al ICA without significant stenosis. The ICA is then patent to the skull base. Vertebral arteries: Left vertebral is dominant. Origin shows no significant stenosis. Small calcific plaque without significant stenosis at the base of the neck. Thereafter patent to the skull base. On the right, vertebral origin is difficult to visualize due to artifact and small vessel size but ap pears patent. The right vertebral is diminutive but appears patent to the skull base. There is no hemodynamically significant diameter stenosis, dissection, nor pseudoaneurysm identified. Other: ET tube tip terminates in good position above the asha. No acute soft tissue abnormality see n in the neck. Included lung apices show moderate to severe emphysematous changes and scarring. Small to moderate bilateral pleural effusions, left greater than right, with associated compressive a telectasis. No pneumothorax. There are mild/moderate degenerative changes of the cervical spine. CTA Head: Left vertebral is dominant. Small calcification in the mid V4 segment without significant narrowing. Left vertebral provides the majority supply to the basilar artery, with the diminutive right vertebra l apparently providing a minor contribution. Basilar artery is patent and tortuous but of normal sony dread. The bifurcation is patent without evidence of aneurysm. On the right, the vessels are tortuous a nd difficult to assess but it seems there are contributions to the [employer] from posterior communicating a rtery and basilar artery. The imaged proximal portions of the right [employer] appear patent as seen. On the left, a patent posterior communicating artery is not seen. The proximal [employer] appears patent how ever however about the P3 segment, the vessel appears essentially cut off and not clearly opacified b eyond this. Calcifications throughout the carotid siphons limit assessment of the lumen, vessels look narrowed bu t appear to remain patent. Supraclinoid ICAs are patent, the carotid termini appear patent. The right A1 segment is hypoplastic or smaller compared to the left. There is a patent anterior commu nicating artery. Distal to this both ACAs appear normally patent. Right MCA appears patent. The left MCA proximally in its M1 segment appears patent however there is unusual appearance in the m id to distal A1 segment, which might be due to very tortuous vessel but the possibility of a filling defect here cannot be excluded. Nevertheless, distal to this short segment the MCA appears relatively normally opacified. No aneurysm, dissection, or arteriovenous malformation is shown. The dural venous sinuses appear grossly patent without evidence of thrombosis. Other: Please refer to same-day CT head report. Changes of ischemic infarct in the left parietal-occ ipital lobes was better seen on that exam. IMPRESSION: CTA neck: 1. Patent CTA Neck. 2. Fusiform ectasia ascending aorta up to 3.6 cm. 3. Mixed plaque at both carotid bifurcation and proximal ICAs, resulting in no hemodynamically signi ficant stenosis. 4. Dominant left vertebral artery, without significant stenosis. Diminutive right vertebral artery. 5. Moderate to severe pulmonary emphysematous changes. 6. Small to moderate bilateral pleural effusions, left greater than right. 7. ET tube in good position. CTA head: 1. Cut off appearance of the P3 segment of the left posterior cerebral artery, likely occluded. 2. Proximal left MCA appears patent, but there is an unusual appearance of the mid to distal M1 segme nt, which might be due to very tortuous vessel but the possibility of a filling defect here cannot be excluded. Nevertheless, distal to this short segment, the MCA appears relatively normally opacified. 3. If clinically warranted, findings could be further assessed during catheter angiography. Otherwise , follow-up head CTs and/or MRI may be of benefit.
[2024-01-22] MEDS ORDERED: IPRATROPIUM-ALBUTEROL 3 ML NEB INHALATION SCH (20:00)
--- NOTE | 2024-01-22 21:24 | XR ---
EXAMINATION TYPE: XR chest 1V portable DATE OF EXAM: 01/22/2024 HISTORY: Shortness of breath. COMPARISON: 01/22/2024 TECHNIQUE: Single view of the chest is submitted. FINDINGS: Demonstrated are scattered senescent parenchymal change. Hyperinflation compatible with COPD. Endotr acheal tube is 9 cm from the asha and appropriately placed. Patchy density left lower lobe may reflect developing infiltrate. Correlate clinically. The heart is stable. Hilar and mediastinal structures are within normal limits. Degenerative changes are seen of the dorsal spine. IMPRESSION: 1. Patchy density left lower lobe may reflect developing infiltrate. Correlate clinically. Endotrach eal tube is well-positioned.
--- NOTE | 2024-01-22 21:25 | XR ---
EXAMINATION TYPE: XR chest 1V portable DATE OF EXAM: 01/22/2024 HISTORY: Shortness of breath. COMPARISON: Earlier in the day TECHNIQUE: Single view of the chest is submitted. FINDINGS: Demonstrated are scattered senescent parenchymal change. Endotracheal tube is 8.3 cm from the asha. Patchy density left lower lobe may reflect developing infiltrate. Correlate clinically. The heart is stable. Hilar and mediastinal structures are within normal limits. Degenerative changes are seen of the dorsal spine. IMPRESSION: 1. Patchy density left lower lobe may reflect developing infiltrate. Correlate clinically.
[2024-01-22 23:50] VITALS: BP 114/74; PULSE 94
[2024-01-23] MEDS ORDERED: PIPERACILLIN-TAZOBACTAM 3.375 GM in SODIUM CHLORIDE 0.9% 100 ML IVPB SCH
[2024-01-23] MEDS ORDERED: AZITHROMYCIN 500 MG in SODIUM CHLORIDE 0.9% 250 ML IVPB SCH (16:00)
== END 2024-01-22 23:16 | disposition other institution (70) ==
LOC: EC 12:04 → 2SICU 16:05 → UNDOADMIN 16:05 → 2SICU 16:25 → UNDODISIN 23:16 → EC 23:16
DX: J44.9 Chronic obstructive pulmonary disease, unspecified (principal); J18.9 Pneumonia, unspecified organism; I21.4 Non-ST elevation (NSTEMI) myocardial infarction; F17.200 Nicotine dependence, unspecified, uncomplicated; F12.90 Cannabis use, unspecified, uncomplicated
CPT/HCPCS: 99291 ×2; 96365 ×2; 96366 ×4; 96368 ×2; 96375 ×2; 96376 ×2; 31500; 36415; 94660; 94640; 36600; 94002; 93005; 83880; 80053; 87449; 82805; 83605; 83735; 84484; 85025; 85610; 85730; 87040; 87070; 87205; 87636; 71045; 70496; 70450; 70498; J2543; J0330; J2060; J0456; J0696; J2250; J2704; Q9967; J2919